=== PATIENT | female | born 1980 | race Two or more races ===

== ENCOUNTER 2020-09-14 17:45 | Emergency (ER) | payer BC ==
[~2020-09-14] VITALS: Ht 172.7 cm; Wt 73.0 kg
[2020-09-14] MEDS ORDERED: PROZAC20 MG (17:58)
[2020-09-14] MEDS ORDERED: ALTOPREV40 MG (17:58)
[2020-09-14] MEDS ORDERED: CIPRO500 MG PO (18:24)
[2020-09-14] MEDS ORDERED: KETO10TA2 PO (18:24)
== END 2020-09-14 19:58 | disposition home or self-care (01) ==
LOC: ER 17:45
DX: S90.822A Blister (nonthermal), left foot, initial encounter (principal); S90.821A Blister (nonthermal), right foot, initial encounter; L02.612 Cutaneous abscess of left foot; L02.611 Cutaneous abscess of right foot; X58.XXXA Exposure to other specified factors, initial encounter; Y93.89 Activity, other specified; Y92.89 Other specified places as the place of occurrence of the external cause; Y99.8 Other external cause status